=== PATIENT | male | born 1960 | race Hispanic/Latino ===

== ENCOUNTER → 2019-10-28 | Day surgery (SDC) | payer OTHER ==
[~2019-10-28] MED LIST: COMBIGAN EYE DRO5 ML OP; CRESTOR10 MG PO; DEXAMETHASONE SOD PHOS 10 MG/1 ML VIAL ONE; DORZOLAMIDE 2%10 ML OP; ETOMIDATE 40 MG/ 20ML VIAL IV ONE; IOPAMIDOL 200 MG/ML 20 ML VIAL IT ONE; LIDOCAINE HCL 1% 30ML-PF VIAL ONE; LISINOPRIL10 MG PO; LUMIGAN2.5 M1 OP; MIDAZOLAM HCL 2 MG/2 ML VIAL ONE; OMEPRAZOLE40 MG PO; PROPOFOL IV EMULSION 10 MG/ML 20 ML VIAL ONE
[2019-10-28 08:05] VITALS: BP 134/73
== END | disposition home or self-care (01) ==
LOC: OR 05:43
PROVIDERS: ATTEND Physical Medicine & Rehabilitation Pain Medicine
DX: M54.16 Radiculopathy, lumbar region (principal); M54.2 Cervicalgia; I10 Essential (primary) hypertension; E78.00 Pure hypercholesterolemia, unspecified; F41.9 Anxiety disorder, unspecified; Z01.810 Encounter for preprocedural cardiovascular examination; Z01.812 Encounter for preprocedural laboratory examination; Z11.59 Encounter for screening for other viral diseases
CPT/HCPCS: 64483; 64484 ×2; 93005; J1100; J2001; J2250; J2704; Q9967; U0002; 77003

== ENCOUNTER → 2019-11-25 | Day surgery (SDC) | payer OTHER ==
[~2019-11-25] VITALS: Ht 172.7 cm; Wt 82.6 kg
[~2019-11-25] MED LIST changes: +ETOMIDATE 2 MG/ML 10 ML INJ IV ONE; -ETOMIDATE 40 MG/ 20ML VIAL IV ONE; +FENTANYL CITRATE/PF 100MCG/2 ML INJ ONE; -MIDAZOLAM HCL 2 MG/2 ML VIAL ONE
[2019-11-25 07:33] VITALS: BP 139/72
== END | disposition home or self-care (01) ==
LOC: OR 05:20
PROVIDERS: ATTEND Physical Medicine & Rehabilitation Pain Medicine
DX: M54.16 Radiculopathy, lumbar region (principal); M54.2 Cervicalgia; I10 Essential (primary) hypertension; K21.9 Gastro-esophageal reflux disease without esophagitis; K44.9 Diaphragmatic hernia without obstruction or gangrene; E78.00 Pure hypercholesterolemia, unspecified; Z01.812 Encounter for preprocedural laboratory examination; Z11.59 Encounter for screening for other viral diseases
CPT/HCPCS: 64483; 64484 ×2; J1100; J2001; J2704; J3010; Q9967; U0002 ×2; 76000

== ENCOUNTER → 2020-01-13 | Day surgery (SDC) | payer OTHER ==
[~2020-01-13] MED LIST changes: -DEXAMETHASONE SOD PHOS 10 MG/1 ML VIAL ONE; -ETOMIDATE 2 MG/ML 10 ML INJ IV ONE; -FENTANYL CITRATE/PF 100MCG/2 ML INJ ONE; +LIDOCAINE HCL 2% LOCAL INJ 5 ML SDV VIAL INJ ONE; +MIDAZOLAM HCL 2 MG/2 ML VIAL ONE; +TRIAMCINOLONE ACET 40 MG/ML VIAL ONE
[2020-01-13 07:45] VITALS: BP 133/72
== END | disposition home or self-care (01) ==
LOC: OR 06:01
PROVIDERS: ATTEND Physical Medicine & Rehabilitation Pain Medicine
DX: M47.896 Other spondylosis, lumbar region (principal); I10 Essential (primary) hypertension; Z01.812 Encounter for preprocedural laboratory examination; Z11.59 Encounter for screening for other viral diseases
CPT/HCPCS: 64493; 64494; 64495; J2001 ×2; J2250; J2704; J3301; Q9967; U0002; 77003